=== PATIENT | male | born 1955 | race Caucasian/White ===

== ENCOUNTER 2016-05-06 03:14 | Inpatient (IN) | payer MEDICARE ==
[~2016-05-06] VITALS: Ht 182.9 cm; Wt 65.2 kg
[~2016-05-06 03:14] MED LIST: ACET-76 PO; ACLI400A2 INH; ALBU90AE INH; ATOR40TA78 PO; BACL20TA PO; BISA10SU2 PR; CLON0.1T PO; DICL50TA2 PO; DOCU-30 PO; DOCU100C8 PO; FLUT1DIS3 INH; FOLI-17 PO; LORA-446 PO; LORA2TAB PO; MULT-108 PO; NICO1PAT4 TD; OMEP40CA6 PO; ONDA4TAB10 PO; ONDA4TAB7 PO; OXYC15TA75 PO; POLY17PO5 PO; PROP10TA PO; THIA100T10 PO
[2016-05-06] MEDS ORDERED: SODIUM CHLORIDE 0.9% 1,000ML IVBOLUS ONE (03:30)
[2016-05-06 04:17] LABS: ASPARTATE AMINO TRANSFERASE 15 U/L (15-37); BLOOD UREA NITROGEN 11 mg/dL (7-18)
[2016-05-06 04:23] LABS: IS PT STATUS REG ER OR PRE ER? YES
[2016-05-06] MEDS ORDERED: KETOROLAC 30 MG/1 ML IVPush ONE (04:30)
[2016-05-06] MEDS ORDERED: KETOROLAC 30 MG/1 ML ONE (04:47)
[2016-05-06] MEDS ORDERED: FAMOTIDINE 20 MG/2 ML IVPush ONE (05:00)
[2016-05-06] MEDS ORDERED: FAMOTIDINE 20 MG/2 ML ONE (05:10)
[2016-05-06] MEDS: NS + 20MEQ KCL 1,000 ML IV SCH ×2 (08:22→23:52)
[2016-05-06] MEDS ORDERED: ACETAMINOPHEN 325 MG TABLET PO PRN (08:30)
[2016-05-06] MEDS ORDERED: DOCUSATE 100 MG CAPSULE PO PRN (08:30)
[2016-05-06] MEDS ORDERED: LORazepam 2 MG/ML, 1ML IV PRN ×3 (08:30)
[2016-05-06] MEDS ORDERED: LORazepam 1MG TABLET PO PRN ×2 (08:30)
[2016-05-06] MEDS ORDERED: MORPHINE SULFATE 4 MG/ML, 1ML IVPush PRN (08:30)
[2016-05-06] MEDS ORDERED: ENOXAPARIN 40 MG/0.4 ML SQ SCH (08:30)
[2016-05-06] MEDS ORDERED: LORazepam 0.5MG TABLET PO PRN (08:30)
[2016-05-06] MEDS ORDERED: ONDANSETRON 2MG/ML, 2ML IVP PRN (08:30)
[2016-05-06] MEDS ORDERED: POLYETHYLENE GLYCOL 17 GM PACKET PO PRN (08:30)
[2016-05-06] MEDS ORDERED: TEMPLATE NON-FORMULARY MED. (Fluticasone/Salmeterol** (Advair 250-50 Diskus**) 1 PUFF) INH SCH (09:00)
[2016-05-06] MEDS: SENNA/DOCUSATE TABLET PO SCH (09:00)
[2016-05-06] MEDS ORDERED: NICOTINE 14MG/24 HR PATCH.TD24 ONE (09:18)
[2016-05-06] MEDS ORDERED: ENOXAPARIN 40 MG/0.4 ML ONE (09:18)
[2016-05-06] MEDS ORDERED: NS + 20MEQ KCL 1,000 ML IV ONE (09:21)
[2016-05-06] MEDS: NICOTINE 14MG/24 HR PATCH.TD24 TD SCH (09:34)
[2016-05-06] MEDS: MULTIVITAMINS/MINERALS TABLET PO SCH (09:59)
[2016-05-06] MEDS: OMEPRAZOLE 20 MG CAPSULE.DR PO SCH ×2 (09:59→22:08)
[2016-05-06] MEDS: THIAMINE 100MG TABLET PO SCH (09:59)
[2016-05-06] MEDS ORDERED: ALBUTEROL SULFATE INH SCH (10:00)
[2016-05-06] MEDS: FOLIC ACID 1 MG TABLET PO SCH (10:00)
[2016-05-06 12:05] VITALS: BP 151/90
[2016-05-06] MEDS: METHOCARBAMOL 500 MG TABLET PO PRN (12:54)
[2016-05-06 13:01] LABS: IS PT STATUS REG ER OR PRE ER? NO
[2016-05-06] MEDS: ENOXAPARIN 40 MG/0.4 ML SQ SCH (13:23)
[2016-05-06 14:08] VITALS: BP 162/94
[2016-05-06] MEDS ORDERED: ALBUTEROL SULFATE 2.5 MG/3 ML NPPB PRN (16:30)
[2016-05-06] MEDS: OXYcodone IR 5MG TABLET PO PRN (16:34)
[2016-05-06] MEDS ORDERED: MAGNESIUM SULFATE PMX 2GM/50ML 50 ML IV ONE (17:00)
[2016-05-06] MEDS ORDERED: LABETALOL 5MG/ML, 20ML IVPush PRN (17:00)
[2016-05-06] MEDS ORDERED: SODIUM CHLORIDE NASAL SPRAY 45ML BOTTLE NAS PRN (18:30)
[2016-05-06 18:44] VITALS: BP_SYST 168; BP_SYST 188; BP_DIAS 100; BP_DIAS 98
[2016-05-06] MEDS: ENALAPRILAT 1.25 MG/ML, 2ML IV PRN (18:51)
[2016-05-06 19:10] LABS: IS PT STATUS REG ER OR PRE ER? NO
[2016-05-06] MEDS: BUDESONIDE 0.5 MG/2 ML INHA NPPB SCH (19:49)
[2016-05-06] MEDS ORDERED: DIPHENHYDRAMINE 25 MG CAPSULE PO ONE (22:00)
[2016-05-07] MEDS: METHOCARBAMOL 500 MG TABLET PO PRN (00:45)
[2016-05-07 02:14] VITALS: BP 186/113
[2016-05-07] MEDS: hydrALAzine 20 MG/ML, 1ML IV PRN ×2 (02:18→19:35)
[2016-05-07 03:46] VITALS: BP 173/107
[2016-05-07] MEDS: OXYcodone IR 5MG TABLET PO PRN (05:39)
[2016-05-07 05:41] LABS: HEMOGLOBIN 15.6 g/dL (13.7-18.0)
[2016-05-07 05:58] LABS: BLOOD UREA NITROGEN 7 mg/dL (7-18)
[2016-05-07 06:40] VITALS: BP 159/111
[2016-05-07] MEDS: ENALAPRILAT 1.25 MG/ML, 2ML IV PRN (07:34)
[2016-05-07] MEDS ORDERED: REGADENOSON 0.4 MG/5 ML SYRINGE ONE (08:05)
[2016-05-07] MEDS: SENNA/DOCUSATE TABLET PO SCH (09:00)
[2016-05-07] MEDS: BUDESONIDE 0.5 MG/2 ML INHA NPPB SCH ×2 (10:45→20:24)
[2016-05-07] MEDS: MULTIVITAMINS/MINERALS TABLET PO SCH (11:12)
[2016-05-07] MEDS: OMEPRAZOLE 20 MG CAPSULE.DR PO SCH ×2 (11:12→21:23)
[2016-05-07] MEDS: THIAMINE 100MG TABLET PO SCH (11:13)
[2016-05-07] MEDS: NICOTINE 14MG/24 HR PATCH.TD24 TD SCH (11:13)
[2016-05-07] MEDS: FOLIC ACID 1 MG TABLET PO SCH (11:13)
[2016-05-07] MEDS: ENOXAPARIN 40 MG/0.4 ML SQ SCH (13:03)
[2016-05-07 13:43] VITALS: BP 158/99
[2016-05-07 18:54] VITALS: BP 144/106
[2016-05-07] MEDS: POTASSIUM CHLORIDE 20 MEQ TAB.ER.PRT PO SCH (19:31)
[2016-05-08 01:48] VITALS: BP 166/107
[2016-05-08] MEDS: METHOCARBAMOL 500 MG TABLET PO PRN (05:07)
[2016-05-08] MEDS: OXYcodone IR 5MG TABLET PO PRN (05:07)
[2016-05-08 06:05] LABS: BLOOD UREA NITROGEN 9 mg/dL (7-18)
[2016-05-08 06:45] VITALS: BP 164/103
[2016-05-08] MEDS ORDERED: FLUT1DIS3 INH (08:42)
[2016-05-08] MEDS ORDERED: ALBU90AE INH (08:42)
[2016-05-08] MEDS ORDERED: CLON0.1T PO (08:42)
[2016-05-08] MEDS ORDERED: OXYC15TA75 PO (08:42)
[2016-05-08] MEDS ORDERED: BISA10SU2 PR (08:42)
[2016-05-08] MEDS ORDERED: LORA-446 PO (08:42)
[2016-05-08] MEDS ORDERED: OMEP40CA6 PO (08:42)
[2016-05-08] MEDS ORDERED: ACET-76 PO (08:42)
[2016-05-08] MEDS: SENNA/DOCUSATE TABLET PO SCH (09:00)
[2016-05-08] MEDS: NICOTINE 14MG/24 HR PATCH.TD24 TD SCH (10:02)
[2016-05-08] MEDS: THIAMINE 100MG TABLET PO SCH (10:02)
[2016-05-08] MEDS: OMEPRAZOLE 20 MG CAPSULE.DR PO SCH (10:02)
[2016-05-08] MEDS: MULTIVITAMINS/MINERALS TABLET PO SCH (10:02)
[2016-05-08] MEDS: FOLIC ACID 1 MG TABLET PO SCH (10:02)
[2016-05-08] MEDS: POTASSIUM CHLORIDE 20 MEQ TAB.ER.PRT PO SCH (10:02)
== END 2016-05-08 11:08 | disposition home or self-care (01) | DRG 895 ==
LOC: ED 04:18 → EDIP 06:15 → 5SO 11:59
PROVIDERS: ADMIT Internal Medicine; ATTEND Family Medicine
PROC: HZ63ZZZ Family Counseling for Substance Abuse Treatment (ICD-10-PCS; principal; 2016-05-06)
PROC: HZ34ZZZ Individual Counseling for Substance Abuse Treatment, Interpersonal (ICD-10-PCS; 2016-05-06)
PROC: HZ2ZZZZ Detoxification Services for Substance Abuse Treatment (ICD-10-PCS; 2016-05-06)
DX: F10.229 Alcohol dependence with intoxication, unspecified (principal); E44.0 Moderate protein-calorie malnutrition; J98.11 Atelectasis; Z68.1 Body mass index [BMI] 19.9 or less, adult; R07.9 Chest pain, unspecified; R00.1 Bradycardia, unspecified; K21.9 Gastro-esophageal reflux disease without esophagitis; G89.29 Other chronic pain; M54.6 Pain in thoracic spine; M54.5 Low back pain; F17.210 Nicotine dependence, cigarettes, uncomplicated; I10 Essential (primary) hypertension; I25.9 Chronic ischemic heart disease, unspecified; M47.814 Spondylosis without myelopathy or radiculopathy, thoracic region; I95.9 Hypotension, unspecified; Z71.41 Alcohol abuse counseling and surveillance of alcoholic
CPT/HCPCS: 36415; 71010; 78452; 80048; 80053; 80061; 80307; 83735; 84484; 85025; 93005; 93017; 94640; 96361; 96372; 96374; 96375; J1650; J1885; J2785; J3480; J7626; A9502; C9898; J0360; J3475; J7030; Q0163; S0028